=== PATIENT | male | born 1970 | race Caucasian/White ===

== ENCOUNTER 2016-07-04 10:27 | Emergency (ER) | payer OTHER ==
[~2016-07-04] VITALS: Ht 165.1 cm; Wt 87.0 kg
[2016-07-04 10:33] VITALS: Ht 165.1 cm; Wt 87.0 kg
[2016-07-04] MEDS: ONDANSETRON (ODT) 4 MG TAB ODT STA ×2 (11:57→11:59)
[2016-07-04] MEDS ORDERED: HYDROCODONE/APAP (5/325) TAB PO ONE (12:00)
--- NOTE | 2016-07-04 12:24 | RADRPT ---
PROCEDURE: CT Head without. CLINICAL INDICATION: Headache, nausea. TECHNIQUE: The study was performed utilizing a multi-slice, multidetector CT scanner. Direct spira l 1 mm axial sections were obtained through the head without the use of intravenous contrast materia l. Coronal and sagittal reformations were obtained. The images were reviewed on a PACS workstation. RADIATION DOSE: CTDIvol: 45.0 mGyDLP: 630.2 mGy-cm COMPARISON: No prior studies are available for comparison. FINDINGS: There is no intracranial hemorrhage, extra-axial fluid collection, mass lesion, midline shift or hyd rocephalus. The ventricles, sulci and cisterns are within normal limits. The white matter is unrem arkable. The arce-white matter differentiation is preserved. The basal cisterns are patent. The m idline structures are intact. The orbits, calvarium and extracranial soft tissues are normal in regina earance. The visualized paranasal sinuses, mastoid air cells and middle ear cavities are normally ae rated. IMPRESSION: 1. No acute intracranial abnormality. No intracranial hemorrhage, extra-axial fluid collection, ma ss lesion or hydrocephalous. RPTAT: HGAS .Marcus Wharton MD, Date Time Electronically viewed and signed by .Marcus Wharton MD, MD on 07/04/2016 12:24 .S/
[2016-07-04 13:01] LABS: BASOPHILS % 0.4 % (0.0-2.0); EOSINOPHILS # 0.1 10^3/ul (0.0-0.5); EOSINOPHILS % 1.1 % (0.0-7.0); HEMATOCRIT 46.9 % (42.0-52.0); HEMOGLOBIN 16.1 g/dl (14.0-18.0); LYMPHOCYTES # 1.6 10^3/ul (0.8-2.9); MEAN CORPUSCULAR HEMOGLOBIN 29.5 pg (29.0-33.0); MEAN CORPUSCULAR HGB CONC 34.4 g/dl (32.0-37.0); MEAN CORPUSCULAR VOLUME 85.7 fl (82.0-101.0); MEAN PLATELET VOLUME 9.3 fl (7.4-10.4); MONOCYTE # 0.4 10^3/ul (0.3-0.9); MONOCYTES % 4.6 % (0.0-11.0); NEUTROPHIL # 5.9 10^3/ul (1.6-7.5); NEUTROPHILS % 73.9 % (39.0-77.0); PLATELET COUNT 174 10^3/UL (140-440); RED BLOOD COUNT 5.47 10^6/ul (4.70-6.10)
[2016-07-04 13:04] LABS: CONDITION 1
[2016-07-04 13:05] LABS: INR 0.97; PROTIME 12.9 Sec (12.2-14.2)
[2016-07-04 13:09] LABS: PARTIAL THROMBOPLASTIN TIME 28.9 Sec (25.0-35.0)
[2016-07-04 13:16] LABS: CREATININE 0.86 mg/dl (0.61-1.24)
[2016-07-04 13:17] LABS: CALCIUM 9.7 mg/dl (8.4-10.2)
[2016-07-04] MEDS ORDERED: HYDR-906 PO (13:57)
[2016-07-04] MEDS ORDERED: IBUP-1542 PO (13:57)
--- NOTE | 2016-07-04 14:02 | ERD ---
ER Documentation Chief Complaint Date/Time DATE: 07/04/16 TIME: 14:00 Chief Complaint zepeda, since yesterday ROS All systems reviewed and are negative except as per history of present illness. Medications Home Meds Active Scripts Hydrocodone/Acetaminophen ([place] 5-325 Tablet) 1 Each Tablet, 1 TAB PO Q6H Y for PAIN, #15 TAB Prov:SAIGE BARNEY 07/04/16 Ibuprofen* (Motrin*) 600 Mg Tab, 600 MG PO Q6, #30 TAB Prov:SAIGE BARNEY 07/04/16 PMhx/Soc Medical and Surgical Hx: pt denies Surgical Hx Hx Alcohol Use: No Hx Substance Use: No Hx Tobacco Use: No Physical Exam Vitals Vital Signs Date Time Temp Pulse Resp B/P Pulse Ox O2 Delivery O2 Flow Rate FiO2 07/04/16 10:33 97.7 62 20 170/90 99 Physical Exam Const: [] Head: Atraumatic Eyes: Normal Conjunctiva ENT: Normal External Ears, Nose and Mouth. Neck: Full range of motion..~ No meningismus. Resp: Clear to auscultation bilaterally Cardio: Regular rate and rhythm, no murmurs Abd: Soft, non tender, non distended. Normal bowel sounds Skin: No petechiae or rashes Back: No midline or flank tenderness Ext: No cyanosis, or edema Neur: Awake and alert Psych: Normal Mood and Affect Result Diagram: 07/04/16 1235 07/04/16 1235 Results 24 hrs Laboratory Tests Test 07/04/16 12:35 Activated Partial Thromboplast Time 28.9Sec Anion Gap 16 Basophils # 0.010^3/ul Basophils % 0.4% Blood Urea Nitrogen 15mg/dl Calcium Level 9.7mg/dl Carbon Dioxide Level 30mmol/L Chloride Level 101mmol/L Creatinine 0.86mg/dl Eosinophils # 0.110^3/ul Eosinophils % 1.1% Glucose Level 106mg/dl Hematocrit 46.9% Hemoglobin 16.1g/dl INR International Normalized Ratio 0.97 Lymphocytes # 1.610^3/ul Lymphocytes % 20.0% Mean Corpuscular Hemoglobin 29.5pg Mean Corpuscular Hemoglobin Concent 34.4g/dl Mean Corpuscular Volume 85.7fl Mean Platelet Volume 9.3fl Monocytes # 0.410^3/ul Monocytes % 4.6% Neutrophils # 5.910^3/ul Neutrophils % 73.9% Nucleated Red Blood Cells # 0.010^3/ul Nucleated Red Blood Cells % 0.0/100WBC Platelet Count 79756^3/UL Potassium Level 4.0mmol/L Prothrombin Time 12.9Sec Prothrombin Time Ratio 1.0 Red Blood Count 5.4710^6/ul Red Cell Distribution Width 13.0% Sodium Level 143mmol/L White Blood Count 8.010^3/ul Current Medications Medications (Trade) Dose Ordered Sig/Tyree Route PRN Reason Start Time Stop Time Status Last Admin Dose Admin Acetaminophen/ Hydrocodone Bitart ([place] (5/325)) 1 tab ONCE ONCE PO 07/04/16 12:00 07/04/16 12:01 DC Ondansetron HCl (Zofran Odt) 4 mg ONCE STAT ODT 07/04/16 11:41 07/04/16 11:43 DC EKG was done read by Dr. Brown [address] elevation no t wave inversion. Procedures/MDM Differential Diagnosis includes but is not limited to; tension headache, migraine headache, cluster headache, sinus headache, nonspecific febrile headache, trigeminal neurologia, subdural hematoma, subarachnoid bleeding, meningitis, encephalitis. Patient is neurologically intact with no focal neurological deficits. This is likely a migraine headache. Patient will be sent home with ibuprofen and with [place]. Patient is afebrile and well- appearing. Patient's blood pressure is elevated to 170/90 however he is not in any hypertensive emergency or urgency. Patient is to follow-up with his primary care doctor within 1-2 days return to ER sooner if symptoms worsen. My medical decision making was shared with the patient he understands and agrees with plan. Departure Diagnosis: Primary Impression: Headache Condition: Stable Patient Instructions: Self-Care for Headaches Additional Instructions: Llame al doctor MAANA y rosetta skylar BENJAMIN PARA DENTRO DE 1-2 ARAIZA.Dgale a la secretaria que nosotros le instruimos hacer esta benjamin.Avise o llame si doty condicin se empeora antes de la benjamin. Regresa aqui si peor o no mejor. SAIGE BARNEY Jul 04, 2016 14:02
[2016-07-04] MEDS ORDERED: LOSA100T7 PO (14:26)
[2016-07-04] MEDS ORDERED: HYD25 PO (14:26)
[2016-07-04 14:46] VITALS: BP 140/77; PULSE 77; RESP 18
== END 2016-07-04 14:48 | disposition home or self-care (01) ==
LOC: FTE 10:27
DX: R51 Headache (principal)
CPT/HCPCS: 36415; 70450; 80048; 85025; 85610; 85730; 93005; Z7502

== ENCOUNTER 2018-12-28 08:48 | Emergency (ER) | payer OTHER ==
[~2018-12-28] VITALS: Ht 160 cm; Wt 80.0 kg
[~2018-12-28 08:48] MED LIST: HYDR-4011 PO; HYDR25TA6 PO; IBUP-1542 PO; LOSA100T15 PO
[2018-12-28 08:59] VITALS: BP 134/78; PULSE 98; RESP 18; Ht 160 cm; Wt 80.0 kg
[2018-12-28] MEDS ORDERED: KETOROLAC 30 MG INJ IM STA (09:40)
--- NOTE | 2018-12-28 09:42 | ERD ---
ER Documentation Chief Complaint Chief Complaint NECK/BACK PAIN , CHEST DISCONFORT WHEN CARRY OBJECTS SINCE October This is a 48-year-old male patient who presents to the emergency room with complaint of right-sided upper back pain since last night. Triage note states patient was having chest discomfort when carrying objects since November 18. 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 Patient has appointment with his PMD tomorrow. For upper back pain patient states that last night he awoke around 2 AM with pain in his right upper back, and feeling stiffness in his neck. No fevers, no nausea or vomiting, no blurred vision, no headache. Patient also states he generally feels muscle weakness and has been working hard at his job. No chronic medical problems no recent travel no sick contacts. Patient is ambulatory and well-appearing at time of evaluation. ROS All systems reviewed and are negative except as per history of present illness. Medications Home Meds Active Scripts Cyclobenzaprine Hcl* (Cyclobenzaprine Hcl*) 10 Mg Tablet, 10 MG PO BID for 3 Days, #6 TAB Prov:TANIA ROLAND NP 12/28/18 Naproxen* (Naprosyn*) 500 Mg Tablet, 500 MG PO BID PRN for PAIN AND/OR INFLAMMATION for 10 Days, #30 TAB Prov:TANIA ROLAND NP 12/28/18 Hydrochlorothiazide* (Hydrochlorothiazide*) 25 Mg Tab, 25 MG PO DAILY, #30 TAB Prov:SAIGE BARNEY C 07/04/16 Losartan Potassium* (Losartan Potassium*) 100 Mg Tablet, 100 MG PO DAILY for 30 Days, TAB Prov:SAIGE BARNEY C 07/04/16 Hydrocodone/Acetaminophen ([place] 5-325 Tablet) 1 Each Tablet, 1 TAB PO Q6H PRN for PAIN, #15 TAB Prov:SAIGE BARNEY C 07/04/16 Ibuprofen* (Motrin*) 600 Mg Tab, 600 MG PO Q6, #30 TAB Prov:SAIGE BARNEY 07/04/16 Allergies Allergies: Coded Allergies: No Known Allergy (Unverified , 12/28/18) PMhx/Soc History of Surgery: No Anesthesia Reaction: No Hx Neurological Disorder: No Hx Respiratory Disorders: No Hx Cardiac Disorders: Yes (HTN) Hx Psychiatric Problems: No Hx Miscellaneous Medical Probl: No Hx Alcohol Use: No Hx Substance Use: No Hx Tobacco Use: No Smoking Status: Never smoker FmHx Family History: No diabetes, No coronary disease, No other Physical Exam Vitals Vital Signs Date Temp Pulse Resp B/P (MAP) Pulse Ox O2 O2 Flow FiO2 Time Delivery Rate 12/28/18 98.1 98 18 134/78 99 08:59 (96) Physical Exam Const: No acute distress Head: Atraumatic Eyes: Normal Conjunctiva, PERRL, EOMI ENT: Normal External Ears, Nose and Mouth. Neck: Full range of motion. No meningismus. No lymphadenopathy. No cervical spinal tenderness. FROM with tightness in the neck, no limitations to range of motion. Resp: Clear to auscultation bilaterally, no wheezing, no rales Cardio: Regular rate and rhythm, no murmurs Abd: Soft, non tender, non distended. Normal bowel sounds Skin: No petechiae or rashes no hematomas Back: No midline or flank tenderness, no spinal tenderness, step-off, deformity. Tenderness to right trapezius with palpation. Ext: No cyanosis, or edema. FROM, no limitations Neur: Awake and alert, CNII-XII intact, clear speech, no paresthesia, steady gait Psych: Normal Mood and Affect Results 24 hrs Current Medications Medications Dose Sig/Tyree Start Time Status Last (Trade) Ordered Route PRN Stop Time Admin Dose Reason Admin Ketorolac 30 mg ONCE STAT 12/28/18 DC 12/28/18 Tromethamine IM 09:40 09:46 (Toradol) 12/28/18 09:42 Procedures/MDM PROCEDURES/MDM EKG: Rate/Rhythm: Normal Sinus Rhythm QRS, ST, T-waves: No changes consistent w/ acute ischemia Impression: No evidence of ischemia or arrhythmia, Right BBB -Medications: Toradol Patient tolerated medication well with no adverse reactions. Patient reported improvement in pain. MDM: This is a 48-year-old male patient who presents emergency room with complaint of upper back and neck stiffness since yesterday. Patient also complains of gen eralized muscle pain. 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 No other concerning symptoms such as fever, nausea vomiting, vision changes, vital signs are stable. Patient is alert and appropriate at time of evaluation. Patient told triage nurse he had chest pain however denies chest pain at today's visit was telling triage nurse historically he has chest pain when he is moving objects at work. EKG performed today negative for ischemia. patient provided with copy of EKG to take to his PMD tomorrow. Patient instructed on use of Naprosyn, Flexeril, heat, stretching, patient will be given 2 days off of work for increasing rest and home care. Patient instructed on red flag signs and symptoms to return to emergency room. Patient is able to ambulate to treatment area without assistance. Patient is seated on the stretcher without obvious distress. There is no surface trauma. Muscle tenderness reproducible with palpation, no spasms, no step-off or deformity, no CVA tenderness to percussion, patient is able to stand erect. Normal flexion and extension with lateral bending and rotation without limitation. Heel and toe walk with good strength Straight leg raise negative for radiculopathy sensation to light touch is intact. Due to patient's presentation today there is low suspicion for malignancy, infection, epidural abscess, cauda equina syndrome, herniation, AAA. DISPOSITION and PLAN: RX: Naprosyn, Flexeril The patient has been discharge home to follow-up with community physician. Departure Diagnosis: Primary Impression: Musculoskeletal strain Condition: Stable TANIA ROLAND NP Dec 28, 2018 09:42
[2018-12-28] MEDS ORDERED: CYCL10TA7 PO (10:09)
[2018-12-28] MEDS ORDERED: NAPR-985 PO (10:09)
== END 2018-12-28 10:17 | disposition home or self-care (01) ==
LOC: FTE 08:48
DX: S16.1XXA Strain of muscle, fascia and tendon at neck level, initial encounter (principal); I10 Essential (primary) hypertension; S29.012A Strain of muscle and tendon of back wall of thorax, initial encounter; X50.0XXA Overexertion from strenuous movement or load, initial encounter; Y92.9 Unspecified place or not applicable
CPT/HCPCS: 93005; 96372; J1885; Z7502